=== PATIENT | male | born 1965 | race Caucasian/White ===

== ENCOUNTER 2017-02-27 15:22 | Emergency (ER) | payer BC ==
[~2017-02-27] VITALS: Ht 180.3 cm; Wt 100.0 kg
[2017-02-27 15:24] VITALS: BP 159/86; PULSE 87; RESP 16; TEMP 98.7; O2SAT 99
--- NOTE | 2017-02-27 15:29 | PD ---
Physical Exam Date Seen by Provider: Feb 27, 2017 Time Seen by Provider: 15:28 Data Data Last Documented VS Vital Signs Date Time Temp Pulse Resp B/P Pulse Ox O2 Delivery O2 Flow Rate FiO2 02/27/17 15:24 98.7 87 16 159/86 99 MDM Supervised Visit with NIGEL: No Narrative Course 52 YO male with PMH of HTN with complaint of "feeling flush" and "like my BP is out of whack." Endorses lightheadedness, tingling just before arrival. Took BP meds today. Vitals reviewed. Awaiting bed placement. Sammi Adhikari Feb 27, 2017 15:29
--- NOTE | 2017-02-27 15:53 | PD ---
HPI . Dizziness, flushed feeling, chest palpitations that started today Chief Complaint: Dizziness Time Seen by Provider: 15:46 Travel History International Travel<30 days: No Contact w/Intl Traveler<30days: No Traveled to known affect area: No History of Present Illness HPI 52-year-old male with history of hypertension here with complaints of feeling flushed, shaky feeling, tingling of both hands and dizziness that started prior to him eating lunch. Patient reports that he was sitting down at a restaurant when all of a sudden he developed all of these symptoms. He became extremely frightened and decided to come into the emergency room. He is very worried that something may be going on. He does admit to going to the [employer] for the past 3 days, where he was drinking heavily. He also admits to drinking 2-6 beers per day on a regular basis while at home. At this present moment, he still feels flushed and shaky. He also feels like his heart is racing. He denies any nausea, vomiting or diaphoresis. He has no current tingling in his hands. He denies any slurred speech or numbness. This event was witnessed by his and child. She says there was no loss of consciousness, speech difficulties or facial drooping. [facility] Past Medical History Hypertension: Yes Social History Alcohol Use: Yes Tobacco Use: No Substance Use: No Allergies-Medications (Allergen,Severity, Reaction): Coded Allergies: Penicillin (Verified Allergy, Severe, 02/27/17) Reported Meds & Prescriptions Reported Meds & Active Scripts Active Reported Aspirin 81 (Aspirin) 81 Mg Tabdr 81 Mg PO DAILY Amlodipine (Amlodipine Besylate) 5 Mg Tab 5 Mg PO DAILY Lisinopril 40 Mg Tab 40 Mg PO DAILY Review of Systems General / Constitutional: No: Fever Eyes: No: Visual changes HENT: No: Headaches Cardiovascular: Positive: Palpitations, Tachycardia, Diaphoresis, No: Chest Pain or Discomfort Respiratory: No: Shortness of Breath Gastrointestinal: No: Nausea, Abdominal Pain Genitourinary: No: Dysuria Musculoskeletal: No: Pain Skin: No Rash Neurologic: Positive: Dizziness, Paresthesia, No: Weakness Psychiatric: No: Depression Endocrine: No: Polydipsia Hematologic/Lymphatic: No: Easy Bruising Physical Exam Narrative GENERAL: AAO x 3, no acute distress, Well-nourished, well-developed patient. SKIN: Warm and dry. No visible rashes or bruising. HEAD: Normocephalic and atraumatic. EYES: No scleral icterus. No injection or drainage. EOM intact, PERRLA ENT: No nasal drainage noted. Mucous membranes pink. Airway patent. NECK: Supple, trachea midline. No JVD. CARDIOVASCULAR: Regular rate and rhythm without murmurs, gallops, or rubs. RESPIRATORY: Breath sounds equal bilaterally. No accessory muscle use. No rhonchi or rales. GASTROINTESTINAL: Abdomen soft, non-tender, nondistended. EXTREMITIES: No cyanosis or edema. BACK: Nontender without obvious deformity. No CVA tenderness. NEURO: CN II-12 intact, laboratory engineer strength normal b/l, UE and LE 5/5, no focal deficits, sensation is grossly intact PSYCH: AAO x 3, normal affect. Data Data Last Documented VS Vital Signs Date Time Temp Pulse Resp B/P Pulse Ox O2 Delivery O2 Flow Rate FiO2 02/27/17 17:54 66 20 152/84 02/27/17 16:25 99 Room Air 02/27/17 15:24 98.7 Orders Electrocardiogram (02/27/17 ) Ckmb (Isoenzyme) Profile (02/27/17 15:53) Complete Blood Count With Diff (02/27/17 15:53) Comprehensive Metabolic Panel (02/27/17 15:53) Magnesium (Mg) (02/27/17 15:53) Prothrombin Time / Inr (Pt) (02/27/17 15:53) Act Partial Throm Time (Ptt) (02/27/17 15:53) Troponin I (02/27/17 15:53) Chest, Single Ap (02/27/17 15:53) Ecg Monitoring (02/27/17 15:53) Bilateral Bp Monitoring (02/27/17 15:53) Iv Access Insert/Monitor (02/27/17 15:53) Oximetry (02/27/17 15:53) Oxygen Administration (02/27/17 15:53) Ct Brain W/O Iv Contrast(Rout) (02/27/17 15:53) Sodium Chlor 0.9% 1000 Ml Inj (Ns 1000 M (02/27/17 16:00) CKMB (02/27/17 16:15) CKMB% (02/27/17 16:15) Sodium Chlor 0.9% 1000 Ml Inj (Ns 1000 M (02/27/17 18:00) Labs Laboratory Tests Test 02/27/17 02/27/17 16:15 17:30 Prothrombin Time 10.0 SEC Prothromb Time International 0.9 RATIO Ratio Activated Partial 24.9 SEC Thromboplast Time Sodium Level 135 MEQ/L Potassium Level 4.0 MEQ/L Chloride Level 102 MEQ/L Carbon Dioxide Level 20.7 MEQ/L Anion Gap 12 MEQ/L Blood Urea Nitrogen 16 MG/DL Creatinine 0.82 MG/DL Estimat Glomerular Filtration 98 ML/MIN Rate Random Glucose 93 MG/DL Calcium Level 8.6 MG/DL Magnesium Level 2.0 MG/DL Total Bilirubin 0.7 MG/DL Aspartate Amino Transf 37 U/L (AST/SGOT) Alanine Aminotransferase 38 U/L (ALT/SGPT) Alkaline Phosphatase 65 U/L Total Creatine Kinase 620 U/L Creatine Kinase MB 4.4 NG/ML Creatine Kinase MB % 0.7 % Troponin I LESS THAN 0.02 NG/ML Total Protein 7.2 GM/DL Albumin 4.1 GM/DL White Blood Count 6.3 TH/MM3 Red Blood Count 4.22 MIL/MM3 Hemoglobin 13.3 GM/DL Hematocrit 39.1 % Mean Corpuscular Volume 92.4 FL Mean Corpuscular Hemoglobin 31.4 PG Mean Corpuscular Hemoglobin 34.0 % Concent Red Cell Distribution Width 13.5 % Platelet Count 174 TH/MM3 Mean Platelet Volume 8.3 FL Neutrophils (%) (Auto) 72.3 % Lymphocytes (%) (Auto) 18.2 % Monocytes (%) (Auto) 8.0 % Eosinophils (%) (Auto) 0.1 % Basophils (%) (Auto) 1.4 % Neutrophils # (Auto) 4.6 TH/MM3 Lymphocytes # (Auto) 1.2 TH/MM3 Monocytes # (Auto) 0.5 TH/MM3 Eosinophils # (Auto) 0.0 TH/MM3 Basophils # (Auto) 0.1 TH/MM3 CBC Comment DIFF FINAL Differential Comment MDM Medical Decision Making Medical Screen Exam Complete: Yes Emergency Medical Condition: Yes Medical Record Reviewed: Yes Differential Diagnosis Heat exhaustion, ACS, less likely TIA or CVA, dehydration Narrative Course 52-year-old male here with complaints of feeling flushed, lightheaded, tingling in his hands and heart palpitations. Physical examination was done and there are no acute abnormalities on exam. Labs, chest x-ray and CT scan of the brain were ordered. Patient does have mildly elevated CK and CK-MB, however his troponin is negative. Case was discussed with Dr. Hamilton, who also saw the patient. We are in agreement that patient more than likely had some type of heat exhaustion episode. We do not suspect any acute coronary syndrome, TIA or CVA. We have both discussed this with him and his family who are at his bedside. Patient verbalized that he is feeling better at the moment. I will go ahead and administer another liter of IV fluids. Patient has been advised to stay hydrated and follow-up with his primary care provider. Patient verbalized understanding of instructions, questions were answered, and thanked me for their care. I advised them if their condition worsens, please return to the nearest emergency room for further care. Diagnosis Primary Impression: Exhaustion Patient Instructions: General Instructions Additional Instructions: Please return to emergency department if your symptoms return or worsen. Follow up with your primary care provider. Continue your home medications as prescribed. Med/Other Pt SpecificInfo: No Change to Meds Disposition: 01 DISCHARGE HOME Condition: Stable Mary Jaffe Feb 27, 2017 15:53
[2017-02-27] MEDS ORDERED: SODIUM CHLOR 0.9% 1000 ML INJ 1,000 ML IV ONE ×2 (16:00→18:00)
[2017-02-27] MEDS ORDERED: AMLO5TAB2 PO (16:14)
[2017-02-27] MEDS ORDERED: LISI40TA PO (16:14)
[2017-02-27] MEDS ORDERED: ASPI-110 PO (16:14)
--- NOTE | 2017-02-27 16:50 | RADRPT ---
EXAM DATE/TIME: 02/27/2017 16:39 [facility] COMPARISON: No previous studies available for comparison. INDICATIONS : Hypertension. Weakness. MEDICAL HISTORY : Hypertension. SURGICAL HISTORY : None. ENCOUNTER: Initial ACUITY: 1 day PAIN SCORE: 0/10 LOCATION: Bilateral chest FINDINGS: A single view of the chest demonstrates the lungs to be symmetrically aerated without evidence of mas s, infiltrate or effusion. The cardiomediastinal contours are unremarkable. Osseous structures are intact. CONCLUSION: No acute disease. Sadi Neville MD FACR on February 27, 2017 at 16:46 Board Certified Radiologist. This report was verified electronically.
[2017-02-27 16:55] LABS: APTT (PATIENT) 24.9 SEC (24.3-30.1); INTERNATIONAL NORMALIZED RATIO 0.9 RATIO
[2017-02-27 16:59] LABS: ALT (GPT) 38 U/L (12-78)
[2017-02-27 17:00] LABS: ANION GAP 12 MEQ/L (5-15); AST (GOT) 37 U/L (15-37); BICARBONATE 20.7 MEQ/L (21.0-32.0); BLOOD UREA NITROGEN 16 MG/DL (7-18); CHLORIDE 102 MEQ/L (98-107); GLOMERULAR FILTRATION RATE 98 ML/MIN (>89); SODIUM (NA) 135 MEQ/L (136-145)
[2017-02-27 17:06] LABS: ALKALINE PHOSPHATASE 65 U/L (45-117); CREATINE KINASE 620 U/L (39-308); TOTAL BILIRUBIN ADULT 0.7 MG/DL (0.2-1.0)
[2017-02-27 17:19] LABS: CKMB 4.4 NG/ML (0.5-3.6)
--- NOTE | 2017-02-27 17:28 | RADRPT ---
EXAM DATE/TIME: 02/27/2017 17:18 [facility] COMPARISON: No previous studies available for comparison. INDICATIONS : Lightheaded and headache. RADIATION DOSE: 44.87 CTDIvol (mGy) MEDICAL HISTORY : Hypertension. SURGICAL HISTORY : None. ENCOUNTER: Initial ACUITY: 1 day PAIN SCALE: 0/10 LOCATION: Bilateral cranial TECHNIQUE: Multiple contiguous axial images were obtained of the head. Using automated exposure control and adj ustment of the mA and/or kV according to patient size, radiation dose was kept as low as reasonably a chievable to obtain optimal diagnostic quality images. FINDINGS: CEREBRUM: The ventricles are normal for age. No evidence of midline shift, mass lesion, hemorrhage or acute in farction. No extra-axial fluid collections are seen. POSTERIOR FOSSA: The cerebellum and brainstem are intact. The 4th ventricle is midline. The cerebellopontine angle i s unremarkable. EXTRACRANIAL: The visualized portion of the orbits is intact. SKULL: The calvaria is intact. No evidence of skull fracture. CONCLUSION: Negative for an acute process. Sadi Neville MD FACR on February 27, 2017 at 17:26 Board Certified Radiologist. This report was verified electronically.
[2017-02-27 17:50] LABS: AUTOMATED NEUTROPHIL # 4.6 TH/MM3 (1.8-7.7); BASOPHIL # 0.1 TH/MM3 (0-0.2); BASOPHIL % 1.4 % (0.0-2.0); EOSINOPHIL % 0.1 % (0.0-4.0); HEMATOCRIT 39.1 % (39.0-51.0); HEMO FLAGS DIFF FINAL; LYMPH % 18.2 % (9.0-44.0); LYMPHOCYTE # 1.2 TH/MM3 (1.0-4.8); MEAN CELL VOLUME 92.4 FL (80.0-100.0); MEAN CORPUSCULAR HEMOGLOBIN 31.4 PG (27.0-34.0); NEUT % 72.3 % (16.0-70.0); PLATELET COUNT 174 TH/MM3 (150-450); RED BLOOD COUNT 4.22 MIL/MM3 (4.50-5.90); RED CELL DISTRIBUTION WIDTH 13.5 % (11.6-17.2); WHITE BLOOD COUNT 6.3 TH/MM3 (4.0-11.0)
[2017-02-27 17:54] VITALS: BP 152/84; PULSE 66; RESP 20
--- NOTE | 2017-03-01 10:08 | EKG ---
Date Performed: 02/27/2017 Time Performed: 15:33:49 PTAGE: 52 years EKG: Sinus rhythm NORMAL ECG NO PREVIOUS TRACING DOCTOR: Wilver Garcia Interpretating Date/Time 03/01/2017 09:52:49
== END 2017-02-27 18:57 | disposition home or self-care (01) ==
LOC: NEPD 15:22
DX: R53.83 Other fatigue (principal); I10 Essential (primary) hypertension
CPT/HCPCS: 70450; 71010; 80053; 82550; 82552; 83735; 84484; 85025; 85610; 85730; 93005; 99285; J7030